=== PATIENT | female | born 1980 | race African-American/Black ===

== ENCOUNTER 2018-11-03 05:18 | Emergency (ER) | payer OTHER ==
[~2018-11-03] VITALS: Ht 170.2 cm; Wt 65.9 kg
[2018-11-03 05:59] LABS: APPEARANCE,URINE CLEAR (CLEAR); BILIRUBIN,URINE NEGATIVE (NEGATIVE); GLUCOSE, URINE (UA) NEGATIVE (NEGATIVE); KETONES,URINE NEGATIVE (NEGATIVE); LEUKOCYTE ESTERASE ,URINE NEGATIVE (NEGATIVE); NITRATE,URINE NEGATIVE (NEGATIVE); OCCULT BLOOD,URINE NEGATIVE (NEGATIVE); PH,URINE 7.5 (5.0-8.0); PROTEIN,URINE NEGATIVE (NEGATIVE); UROBILINOGEN,URINE 0.2 mg/dL (<=1.0)
[2018-11-03] MEDS ORDERED: KETOROLAC TROMETHAMINE 60 MG/2 ML VIAL IM ONE (06:00)
[2018-11-03] MEDS ORDERED: LIDOCAINE 5% TRANSDERMAL PATCH TD ONE (06:45)
[2018-11-03 07:24] VITALS: BP 112/62
== END 2018-11-03 07:40 | disposition home or self-care (01) ==
LOC: EMS 05:21
DX: M54.5 Low back pain (principal); W18.39XA Other fall on same level, initial encounter; Y93.89 Activity, other specified; Y92.89 Other specified places as the place of occurrence of the external cause; Y99.8 Other external cause status
CPT/HCPCS: 72100; J1885

== ENCOUNTER 2022-11-09 15:30 | Emergency (ER) | payer OTHER ==
[~2022-11-09] VITALS: Ht 170.2 cm; Wt 76.8 kg
[2022-11-09] MEDS ORDERED: METOCLOPRAMIDE HCL 5 MG/ML 2 ML VIAL IVP ONE (16:00)
[2022-11-09] MEDS ORDERED: SODIUM CHLORIDE 0.9% 1,000 ML IV ONE (16:00)
[2022-11-09] MEDS ORDERED: KETOROLAC TROMETHAMINE 30 MG/ML VIAL IVP ONE (16:00)
[2022-11-09] MEDS ORDERED: DiphenhydrAMINE HCL 50 MG/ML VIAL IVP ONE (16:00)
[2022-11-09 18:06] VITALS: BP 112/67
[2022-11-09] MEDS ORDERED: SUMA25TA9 PO (18:13)
== END 2022-11-09 18:21 | disposition home or self-care (01) ==
LOC: EMS 15:32
DX: G43.909 Migraine, unspecified, not intractable, without status migrainosus (principal); K80.20 Calculus of gallbladder without cholecystitis without obstruction; Z88.8 Allergy status to other drugs, medicaments and biological substances
CPT/HCPCS: 99284; 96374; 96375; 96361; J1200; J1885; J2765; J7030